=== PATIENT | female | born 1945 | race Caucasian/White ===

== ENCOUNTER 2016-09-30 08:00 | Inpatient (IN) | payer MEDICARE, OTHER ==
[2017-01-16] MEDS ORDERED: MIDAZOLAM 2 MG/2 ML SOL ONE (09:10)
[2017-01-16] MEDS ORDERED: LIDOCAINE HCL 1% MPF SOL ONE (09:10)
[2017-01-16] MEDS ORDERED: PROPOFOL 500 MG/50 ML EMU IV ONE ×3 (09:10→14:32)
[2017-01-16] MEDS ORDERED: KETAMINE HYDROCHLORIDE 50 MG/ML SOL ONE (09:11)
[2017-01-16] MEDS ORDERED: MORPHINE SULFATE 0.5 MG/ML SOL ONE (09:11)
[2017-01-16] MEDS ORDERED: LACTATED RINGERS 1,000 ML IV ONE (09:30)
[2017-01-16] MEDS ORDERED: SCOPOLAMINE 1.5MG PATCH TD SCH (09:30)
[2017-01-16] MEDS ORDERED: TETRACAINE HCL 1% SOL ONE (10:30)
[2017-01-16] MEDS ORDERED: LACTATED RINGERS 1,000 ML IV SCH (10:30)
[2017-01-16] MEDS ORDERED: SODIUM CHLORIDE 20 ML 0 ML ONE (10:52)
[2017-01-16] MEDS ORDERED: CLINDAMYCIN 150 MG/ML SOL ONE ×2 (11:27→20:28)
[2017-01-16] MEDS ORDERED: SODIUM CHLORIDE 0.9% FLUSH 10 ML SOL IV ONE ×3 (11:31→14:50)
[2017-01-16] MEDS ORDERED: ONDANSETRON HCL 4 MG/2 ML SOL ONE (11:51)
[2017-01-16] MEDS ORDERED: DEXAMETHASONE 20 MG/5 ML (4 MG/ML SOL) ONE (11:51)
[2017-01-16] MEDS ORDERED: METOCLOPRAMIDE HYDROCHLORIDE 5 MG/ML SOL ONE (11:51)
[2017-01-16] MEDS ORDERED: EPHEDRINE SULFATE 50 MG/ML SOL ONE (12:04)
[2017-01-16] MEDS ORDERED: PHENYLEPHRINE HYDROCHLORIDE 10 MG/ML SOL ONE (12:21)
[2017-01-16] MEDS ORDERED: PROPOFOL 10 MG/ML EMU IV ONE ×2 (12:42→12:46)
[2017-01-16] MEDS: BUPIVACAINE LIPOSOME 20 ML SUS ONE ×2 (13:27→14:50)
[2017-01-16] MEDS ORDERED: FENTANYL CITRATE 50 MCG/ML SOL ONE (13:31)
[2017-01-16] MEDS: TRANEXAMIC ACID 100 MG/ML SOL ONE ×2 (13:37→15:07)
[2017-01-16] MEDS ORDERED: KETOROLAC TROMETHAMINE 30 MG/ML SOL IV ONE ×2 (14:05→16:05)
[2017-01-16] MEDS ORDERED: CLONAZEPAM 0.5 MG TAB PO PRN (15:17)
[2017-01-16] MEDS ORDERED: ALPRAZOLAM 0.25 MG TAB PO PRN (15:17)
[2017-01-16] MEDS ORDERED: SODIUM CHLORIDE 0.9% 500 ML 500 ML IV PRN (15:23)
[2017-01-16] MEDS ORDERED: HYDROMORPHONE HCL 2 MG/ML 1 ML SOL IV PRN (15:23)
[2017-01-16] MEDS ORDERED: ONDANSETRON HCL 4 MG/2 ML SOL IV PRN (15:23)
[2017-01-16] MEDS ORDERED: DIPHENHYDRAMINE 50 MG/ML SOL IV PRN (15:23)
[2017-01-16] MEDS ORDERED: BISACODYL 10 MG SUP PR PRN (15:23)
[2017-01-16] MEDS ORDERED: ONDANSETRON 4 MG ODT BU PRN (15:23)
[2017-01-16] MEDS ORDERED: ALUMINUM/MAGNESIUM 30 ML SUS PO PRN (15:23)
[2017-01-16] MEDS ORDERED: DIAZEPAM 5 MG TAB PO PRN (15:23)
[2017-01-16] MEDS ORDERED: MORPHINE SULFATE 10 MG/ML SOL IV PRN (15:23)
[2017-01-16] MEDS ORDERED: FLEET ENEMA PR PRN (15:23)
[2017-01-16] MEDS ORDERED: TEMAZEPAM 15MG 15 MG CAP PO PRN (15:23)
[2017-01-16] MEDS ORDERED: KETOROLAC TROMETHAMINE 30 MG/ML SOL ONE (16:00)
[2017-01-16] MEDS: SODIUM CHLORIDE 0.9% 1000ML 1,000 ML IV SCH (16:58)
[2017-01-16] MEDS: SODIUM CHLORIDE 0.9% FLUSH 10 ML SOL IV SCH ×2 (17:10→23:11)
[2017-01-16] MEDS: ATENOLOL 25 MG TAB PO SCH (17:10)
[2017-01-16] MEDS ORDERED: SODIUM CHLORIDE 0.9% 100 ML 100 ML IV ONE (20:28)
[2017-01-16] MEDS: CLINDAMYCIN 150 MG/ML 900 MG in SODIUM CHLORIDE 0.9% 100 ML 100 ML IV SCH (20:47)
[2017-01-16] MEDS: SENNOSIDES A AND B 8.6 MG TAB PO SCH (22:20)
[2017-01-16] MEDS: GABAPENTIN 300 MG CAP PO SCH (22:20)
[2017-01-16] MEDS: SPIRONOLACTONE 25 MG TAB PO SCH (22:20)
[2017-01-16] MEDS: SIMVASTATIN 20 MG TAB PO SCH (22:21)
[2017-01-17] MEDS: APAP/OXYCODONE 325/5 TAB PO PRN ×5 (00:43→21:41)
[2017-01-17] MEDS: CLINDAMYCIN 150 MG/ML 900 MG in SODIUM CHLORIDE 0.9% 100 ML 100 ML IV SCH (03:48)
[2017-01-17] MEDS: SODIUM CHLORIDE 0.9% 1000ML 1,000 ML IV SCH ×3 (04:46→21:40)
[2017-01-17] MEDS: LEVOTHYROXINE SODIUM 50 MCG TAB PO SCH (06:19)
[2017-01-17 07:17] LABS: MEAN CORPUSCULAR HGB CONC 35.7 gm/dl (32.0-36.0)
[2017-01-17] MEDS: SODIUM CHLORIDE 0.9% FLUSH 10 ML SOL IV SCH ×2 (07:33→16:13)
[2017-01-17] MEDS ORDERED: GABAPENTIN 100 MG CAP PO SCH (09:00)
[2017-01-17] MEDS: RIVAROXABAN 10 MG TAB PO SCH (09:18)
[2017-01-17] MEDS: VENLAFAXINE HYDROCHLORIDE 75 MG CER PO SCH (09:18)
[2017-01-17] MEDS: FUROSEMIDE 20 MG TAB PO SCH ×2 (09:20→14:59)
[2017-01-17] MEDS: SPIRONOLACTONE 25 MG TAB PO SCH ×2 (09:20→14:59)
[2017-01-17] MEDS: MULTIVITAMIN2 1 EA TAB PO SCH (09:26)
[2017-01-17] MEDS ORDERED: PATIENT EDUCATION 1 MISC PRN (11:58)
[2017-01-17] MEDS: GABAPENTIN 300 MG CAP PO SCH ×2 (17:56→21:39)
[2017-01-17] MEDS: SENNOSIDES A AND B 8.6 MG TAB PO SCH (21:39)
[2017-01-17] MEDS: SIMVASTATIN 20 MG TAB PO SCH (21:39)
[2017-01-18] MEDS: APAP/OXYCODONE 325/5 TAB PO PRN ×4 (02:59→18:18)
[2017-01-18] MEDS: SODIUM CHLORIDE 0.9% FLUSH 10 ML SOL IV SCH ×2 (06:34)
[2017-01-18] MEDS: SODIUM CHLORIDE 0.9% 1000ML 1,000 ML IV SCH (06:34)
[2017-01-18] MEDS: LEVOTHYROXINE SODIUM 50 MCG TAB PO SCH (07:38)
[2017-01-18 07:41] LABS: MEAN CORPUSCULAR HGB CONC 34.3 gm/dl (32.0-36.0)
[2017-01-18] MEDS: SPIRONOLACTONE 25 MG TAB PO SCH ×2 (08:26→20:35)
[2017-01-18] MEDS: FUROSEMIDE 20 MG TAB PO SCH (08:26)
[2017-01-18] MEDS: GABAPENTIN 300 MG CAP PO SCH ×3 (08:27→20:36)
[2017-01-18] MEDS: MULTIVITAMIN2 1 EA TAB PO SCH (08:27)
[2017-01-18] MEDS: RIVAROXABAN 10 MG TAB PO SCH (08:28)
[2017-01-18] MEDS: VENLAFAXINE HYDROCHLORIDE 75 MG CER PO SCH (08:28)
[2017-01-18] MEDS: ATENOLOL 25 MG TAB PO SCH (18:18)
[2017-01-18] MEDS: SENNOSIDES A AND B 8.6 MG TAB PO SCH (20:35)
[2017-01-18] MEDS: SIMVASTATIN 20 MG TAB PO SCH (20:36)
[2017-01-19] MEDS: APAP/OXYCODONE 325/5 TAB PO PRN ×4 (01:54→16:51)
[2017-01-19] MEDS: SODIUM CHLORIDE 0.9% FLUSH 10 ML SOL IV SCH (02:16)
[2017-01-19] MEDS: LEVOTHYROXINE SODIUM 50 MCG TAB PO SCH (06:32)
[2017-01-19 08:06] LABS: MEAN CORPUSCULAR HGB CONC 33.9 gm/dl (32.0-36.0)
[2017-01-19] MEDS: FUROSEMIDE 20 MG TAB PO SCH (08:38)
[2017-01-19] MEDS: SPIRONOLACTONE 25 MG TAB PO SCH ×2 (08:38→20:58)
[2017-01-19] MEDS: GABAPENTIN 300 MG CAP PO SCH ×3 (08:39→20:58)
[2017-01-19] MEDS: MULTIVITAMIN2 1 EA TAB PO SCH (08:39)
[2017-01-19] MEDS: VENLAFAXINE HYDROCHLORIDE 75 MG CER PO SCH (08:39)
[2017-01-19] MEDS: RIVAROXABAN 10 MG TAB PO SCH (08:39)
[2017-01-19] MEDS: SODIUM CHLORIDE 0.9% 500 ML 500 ML IV SCH (11:23)
[2017-01-19] MEDS: SODIUM CHLORIDE 0.9% FLUSH 10 ML SOL IV PRN ×2 (11:24→17:25)
[2017-01-19] MEDS: MAGNESIUM HYDROXIDE 30 ML SUS PO PRN (14:15)
[2017-01-19 15:51] VITALS: RESP 16
[2017-01-19] MEDS: ATENOLOL 25 MG TAB PO SCH (17:38)
[2017-01-19] MEDS: SIMVASTATIN 20 MG TAB PO SCH (20:58)
[2017-01-19] MEDS: SENNOSIDES A AND B 8.6 MG TAB PO SCH (20:58)
[2017-01-20] MEDS: APAP/OXYCODONE 325/5 TAB PO PRN ×2 (00:50→11:27)
[2017-01-20] MEDS: LEVOTHYROXINE SODIUM 50 MCG TAB PO SCH (06:38)
[2017-01-20] MEDS: SODIUM CHLORIDE 0.9% 500 ML 500 ML IV SCH (07:34)
[2017-01-20 08:03] VITALS: BP 99/61; PULSE 70; TEMP 98; O2SAT 94
[2017-01-20] MEDS: SPIRONOLACTONE 25 MG TAB PO SCH (08:54)
[2017-01-20] MEDS: GABAPENTIN 300 MG CAP PO SCH (08:55)
[2017-01-20] MEDS: FUROSEMIDE 20 MG TAB PO SCH (08:55)
[2017-01-20] MEDS: MULTIVITAMIN2 1 EA TAB PO SCH (08:55)
[2017-01-20] MEDS: VENLAFAXINE HYDROCHLORIDE 75 MG CER PO SCH (08:56)
[2017-01-20] MEDS: MAGNESIUM HYDROXIDE 30 ML SUS PO PRN (08:56)
[2017-01-20] MEDS: RIVAROXABAN 10 MG TAB PO SCH (08:56)
== END 2017-01-20 12:05 | DRG 462 ==
LOC: ACUTE CARE 01-16 08:58
PROVIDERS: ADMIT Orthopaedic Surgery; ATTEND Orthopaedic Surgery
PROC: 0SRC0J9 Replacement of Right Knee Joint with Synthetic Substitute, Cemented, Open Approach (ICD-10-PCS; 2017-01-16)
PROC: F02Z1ZZ Dressing Assessment (ICD-10-PCS; 2017-01-16)
PROC: F02Z0ZZ Bathing/Showering Assessment (ICD-10-PCS; 2017-01-16)
PROC: F01ZDFZ Gait and/or Balance Assessment using Assistive, Adaptive, Supportive or Protective Equipment (ICD-10-PCS; 2017-01-16)
PROC: 0SRD0J9 Replacement of Left Knee Joint with Synthetic Substitute, Cemented, Open Approach (ICD-10-PCS; principal; 2017-01-16 11:30)
PROC: 30233N1 Transfusion of Nonautologous Red Blood Cells into Peripheral Vein, Percutaneous Approach (ICD-10-PCS; 2017-01-19)
DX: M17.0 Bilateral primary osteoarthritis of knee (principal); I10 Essential (primary) hypertension; Z96.653 Presence of artificial knee joint, bilateral; F41.9 Anxiety disorder, unspecified; E03.9 Hypothyroidism, unspecified; E78.5 Hyperlipidemia, unspecified; R53.83 Other fatigue
CPT/HCPCS: 36415; 73560; 85018; 85027; 94150; 99070; J1100; J1885; J2250; J2270; J2275; J2405; J2765; J3010; J3490; A6219; A6232; A6402; J2001; J2704

== ENCOUNTER 2017-02-28 09:35 | Outpatient (CLI) | payer MEDICARE, OTHER ==
[2017-01-20 08:03] VITALS: O2SAT 94
== END 2017-02-28 09:36 | disposition home or self-care (01) | DRG 561 ==
LOC: CONVCARE 09:35
PROVIDERS: ATTEND Orthopaedic Surgery
DX: Z47.1 Aftercare following joint replacement surgery (principal); Z96.653 Presence of artificial knee joint, bilateral
CPT/HCPCS: 73562

== ENCOUNTER 2017-07-15 13:04 | Day surgery (SDC) | payer MEDICARE, OTHER ==
[2017-07-15 13:44] VITALS: TEMP 97.8
[2017-07-15] MEDS ORDERED: BUPIVACAINE HCL 0.5% MPF 10 ML SOL ONE (14:29)
[2017-07-15] MEDS ORDERED: LIDOCAINE HCL 1% MPF SOL ONE (14:29)
[2017-07-15] MEDS: TRIAMCINOLONE ACETONIDE 40 MG/ML SUS ONE ×2 (14:36→14:48)
[2017-07-15 15:09] VITALS: BP 116/73; PULSE 65; RESP 20; O2SAT 98
== END 2017-07-15 15:37 | disposition home or self-care (01) | DRG 554 ==
LOC: SURG 13:04
PROVIDERS: ATTEND Nurse Anesthetist, Certified Registered
DX: M12.88 Other specific arthropathies, not elsewhere classified, other specified site (principal)
CPT/HCPCS: J2001; J3300

== ENCOUNTER 2018-05-12 11:56 | Day surgery (SDC) | payer MEDICARE, OTHER ==
[2018-05-12] MEDS ORDERED: DIAZEPAM 5 MG TAB ONE (12:17)
[2018-05-12] MEDS ORDERED: BUPIVACAINE HCL 0.25% MPF 30 ML SOL INFIL ONE (13:16)
[2018-05-12] MEDS: TRIAMCINOLONE ACETONIDE 40 MG/ML SUS ONE ×4 (14:01→14:07)
[2018-05-12 14:06] VITALS: RESP 16
[2018-05-12 14:16] VITALS: BP 124/73; PULSE 66; TEMP 97.9; O2SAT 95
== END 2018-05-12 14:46 | disposition home or self-care (01) | DRG 74 ==
LOC: SURG 11:56
PROVIDERS: ATTEND Nurse Anesthetist, Certified Registered
DX: G58.8 Other specified mononeuropathies (principal); M54.5 Low back pain
CPT/HCPCS: A9270-GY; J3300

== ENCOUNTER 2018-06-09 11:54 | Day surgery (SDC) | payer MEDICARE, OTHER ==
[2018-06-09] MEDS ORDERED: DIAZEPAM 5 MG TAB ONE (12:10)
[2018-06-09] MEDS ORDERED: BUPIVACAINE HCL 0.5% MPF 10 ML SOL ONE (13:13)
[2018-06-09] MEDS ORDERED: TRIAMCINOLONE ACETONIDE 40 MG/ML SUS ONE (13:13)
[2018-06-09 13:46] VITALS: BP 112/67; PULSE 62; RESP 20; TEMP 97.8; O2SAT 95
== END 2018-06-09 14:00 | disposition home or self-care (01) | DRG 74 ==
LOC: SURG 11:54
PROVIDERS: ATTEND Nurse Anesthetist, Certified Registered
DX: G58.8 Other specified mononeuropathies (principal)
CPT/HCPCS: A9270-GY; J3300

== ENCOUNTER 2018-07-14 11:32 | Day surgery (SDC) | payer MEDICARE, OTHER ==
[2018-07-14 11:49] VITALS: RESP 16
[2018-07-14] MEDS ORDERED: TRIAMCINOLONE ACETONIDE 40 MG/ML SUS ONE (12:13)
[2018-07-14] MEDS ORDERED: BUPIVACAINE HCL 0.25% MPF 30 ML SOL INFIL ONE (12:14)
[2018-07-14 13:07] VITALS: BP 127/69; PULSE 60; TEMP 97.8; O2SAT 93
== END 2018-07-14 13:35 | disposition home or self-care (01) | DRG 74 ==
LOC: SURG 11:32
PROVIDERS: ATTEND Nurse Anesthetist, Certified Registered
DX: G58.8 Other specified mononeuropathies (principal)
CPT/HCPCS: J3300

== ENCOUNTER 2018-08-18 08:56 | Day surgery (SDC) | payer MEDICARE, OTHER ==
[2018-08-18] MEDS ORDERED: DIAZEPAM 5 MG TAB ONE (09:17)
[2018-08-18] MEDS ORDERED: TRIAMCINOLONE ACETONIDE 40 MG/ML SUS ONE (09:26)
[2018-08-18] MEDS ORDERED: BUPIVACAINE HCL 0.25% MPF 30 ML SOL INFIL ONE (09:26)
[2018-08-18 10:08] VITALS: BP 148/84; RESP 20; TEMP 97.3; O2SAT 98
[2018-08-18 10:14] VITALS: PULSE 64
== END 2018-08-18 10:30 | disposition home or self-care (01) | DRG 552 ==
LOC: SURG 08:56
PROVIDERS: ATTEND Nurse Anesthetist, Certified Registered
DX: M48.062 Spinal stenosis, lumbar region with neurogenic claudication (principal)
CPT/HCPCS: A9270-GY; J3300

== ENCOUNTER 2018-10-14 09:05 | Day surgery (SDC) | payer MEDICARE, OTHER ==
[2018-10-14] MEDS ORDERED: DIAZEPAM 5 MG TAB ONE (09:25)
[2018-10-14] MEDS ORDERED: LIDOCAINE HCL 1% MPF 30 SOL ONE (09:28)
[2018-10-14] MEDS ORDERED: BUPIVACAINE HCL 0.5% MPF 10 ML SOL ONE (09:28)
[2018-10-14 10:27] VITALS: TEMP 97.4
[2018-10-14 10:54] VITALS: BP 126/78; PULSE 74; RESP 20; O2SAT 4
== END 2018-10-14 10:53 | disposition home or self-care (01) | DRG 554 ==
LOC: SURG 09:05
PROVIDERS: ATTEND Nurse Anesthetist, Certified Registered
DX: M12.88 Other specific arthropathies, not elsewhere classified, other specified site (principal)
CPT/HCPCS: A9270-GY; J2001

== ENCOUNTER 2018-10-28 13:39 | Day surgery (SDC) | payer OTHER, MEDICARE | END 2018-10-28 15:24 | disposition home or self-care (01) | LOC: SURG 13:39 ==

== ENCOUNTER 2019-01-13 12:34 | Day surgery (SDC) | payer OTHER ==
[2019-01-13] MEDS ORDERED: BUPIVACAINE HCL 0.25% MPF 30 ML SOL INFIL ONE (13:13)
[2019-01-13] MEDS ORDERED: MIDAZOLAM 2 MG/2 ML SOL ONE (13:13)
[2019-01-13] MEDS ORDERED: LIDOCAINE HCL 2% MPF 10 ML SOL ONE (13:13)
[2019-01-13] MEDS ORDERED: LIDOCAINE HCL 1% MPF 30 SOL ONE (13:13)
[2019-01-13] MEDS ORDERED: FENTANYL 100MCG/2ML SOL ONE (13:13)
[2019-01-13] MEDS ORDERED: SODIUM CHLORIDE 0.9% FLUSH 10 ML SOL IV ONE (13:29)
[2019-01-13] MEDS: TRIAMCINOLONE ACETONIDE 40 MG/ML SUS ONE ×2 (14:13→14:37)
[2019-01-13 15:06] VITALS: BP 119/69; PULSE 73; RESP 12; TEMP 97.3; O2SAT 95
== END 2019-01-13 15:23 | disposition home or self-care (01) | DRG 554 ==
LOC: SURG 12:34
PROVIDERS: ATTEND Nurse Anesthetist, Certified Registered
DX: M12.88 Other specific arthropathies, not elsewhere classified, other specified site (principal)
CPT/HCPCS: J2250; J3010; J2001; J3300

== ENCOUNTER 2019-03-09 09:24 | Day surgery (SDC) | payer OTHER ==
[2019-03-09] MEDS ORDERED: BUPIVACAINE HCL 0.25% MPF 30 ML SOL INFIL ONE (10:32)
[2019-03-09] MEDS: DEXAMETHASONE SOD PHOS PF 10 MG/ML SOL IJ ONE ×3 (10:42→10:55)
[2019-03-09 11:11] VITALS: BP 109/72; PULSE 72; RESP 18; TEMP 96.9; O2SAT 97
== END 2019-03-09 13:40 | disposition home or self-care (01) | DRG 552 ==
LOC: SURG 09:24
PROVIDERS: ATTEND Nurse Anesthetist, Certified Registered
DX: M48.062 Spinal stenosis, lumbar region with neurogenic claudication (principal)
CPT/HCPCS: J1100

== ENCOUNTER 2019-06-22 13:13 | Day surgery (SDC) | payer OTHER ==
[2019-06-22] MEDS ORDERED: DIAZEPAM 5 MG TAB ONE (13:39)
[2019-06-22] MEDS ORDERED: DIAZEPAM 5 MG TAB PO ONE (13:40)
[2019-06-22] MEDS ORDERED: BUPIVACAINE HCL 0.25% MPF 30 ML SOL INFIL ONE (13:51)
[2019-06-22] MEDS: TRIAMCINOLONE ACETONIDE 40 MG/ML SUS ONE ×4 (13:59→14:04)
[2019-06-22 14:16] VITALS: BP 137/81; PULSE 69; RESP 20; TEMP 97.4; O2SAT 93
== END 2019-06-22 14:37 | disposition home or self-care (01) | DRG 554 ==
LOC: SURG 13:13
PROVIDERS: ATTEND Nurse Anesthetist, Certified Registered
DX: M12.9 Arthropathy, unspecified (principal)
CPT/HCPCS: A9270-GY; J3300